=== PATIENT | male | born 1970 | race Caucasian/White ===

== ENCOUNTER → 2024-09-22 19:59 | Outpatient (REF) | payer BC, SELFPAY | LOC: MRI 19:59 | PROVIDERS: ATTENDING PHYSICIAN Family Medicine | DX: R42 Dizziness and giddiness (principal) | CPT/HCPCS: 70553; A9575 ==

== ENCOUNTER 2024-12-05 06:21 | Day surgery (SDC) | payer BC, SELFPAY | END 2024-12-05 10:53 | disposition home or self-care (01) | LOC: GI 06:21 | PROVIDERS: ATTENDING PHYSICIAN Surgery | DX: Z12.11 Encounter for screening for malignant neoplasm of colon (principal); D12.5 Benign neoplasm of sigmoid colon; D12.4 Benign neoplasm of descending colon; K64.8 Other hemorrhoids | CPT/HCPCS: 45385; 45380; 88305 ==